=== PATIENT | male | born 1935 | race Caucasian/White ===

== ENCOUNTER 2017-03-18 11:20 | Emergency (ER) | payer OTHER ==
[~2017-03-18] VITALS: Wt 74.0 kg
[2017-03-18] MEDS ORDERED: ACETAMINOPHEN 650 MG SUPP PR STA (11:24)
[2017-03-18] MEDS ORDERED: SODIUM CHLORIDE 0.9% 1L BAG IV* STA ×2 (11:48→12:59)
[2017-03-18 12:15] LABS: ABNORMAL IP MESSAGE 1; BASOPHILS % 0.1 % (0.0-2.0); HEMATOCRIT 46.1 % (42.0-52.0); HEMOGLOBIN 14.8 g/dl (14.0-18.0); LYMPHOCYTES # 0.3 10^3/ul (0.8-2.9); LYMPHOCYTES % 2.8 % (15.0-51.0); MEAN CORPUSCULAR HEMOGLOBIN 29.4 pg (29.0-33.0); MEAN CORPUSCULAR HGB CONC 32.1 g/dl (32.0-37.0); MEAN CORPUSCULAR VOLUME 91.5 fl (82.0-101.0); MEAN PLATELET VOLUME 9.8 fl (7.4-10.4); MONOCYTE # 0.5 10^3/ul (0.3-0.9); MONOCYTES % 4.1 % (0.0-11.0); NEUTROPHIL # 11.2 10^3/ul (1.6-7.5); NEUTROPHILS % 92.5 % (39.0-77.0); PLATELET COUNT 132 10^3/UL (140-415); POSITIVE DIFF @See below; RED BLOOD COUNT 5.04 10^6/ul (4.70-6.10); RED CELL DISTRIBUTION WIDTH 13.9 % (11.5-14.5); WHITE BLOOD COUNT 12.1 10^3/ul (4.8-10.8)
[2017-03-18 12:16] LABS: ADD UMIC YES; UR ASCORBIC ACID NEGATIVE (NEGATIVE); UR BACTERIA MANY /HPF (NONE SEEN); UR BILIRUBIN (Dip) NEGATIVE (NEGATIVE); UR BLOOD (Dip) 3+ mg/dL (NEGATIVE); UR CLARITY CLOUDY (CLEAR); UR COLOR AMBER (YELLOW); UR GLUCOSE (Dip) NEGATIVE (NEGATIVE); UR KETONES (Dip) NEGATIVE (NEGATIVE); UR LEUKOCYTE ESTERASE (Dip) 3+ Leu/ul (NEGATIVE); UR NITRITE (Dip) NEGATIVE (NEGATIVE); UR RBC > 182 /HPF (0-5); UR SPECIFIC GRAVITY (Dip) 1.013 (1.003-1.030); UR TOTAL PROTEIN (Dip) 2+ mg/dl (NEGATIVE); UR UROBILINOGEN (Dip) 2+ mg/dL (NEGATIVE)
[2017-03-18] MEDS ORDERED: CEFTRIAXONE 1 GM/50 ML (PMX) 50 ML IVPB ONE (12:30)
[2017-03-18 12:33] LABS: INR 0.98
[2017-03-18 12:34] LABS: PARTIAL THROMBOPLASTIN TIME 27.6 Sec (25.0-35.0)
[2017-03-18 12:35] LABS: ALBUMIN 3.4 g/dl (3.3-4.9); ALBUMIN/GLOBULIN RATIO 0.94; BILIRUBIN,DIRECT 0.5 mg/dl (0.00-0.20); BILIRUBIN,INDIRECT 1.4 mg/dl (0-1.1); BILIRUBIN,TOTAL 1.9 mg/dl (0.2-1.3); CALCIUM 9.1 mg/dl (8.4-10.2); CREATININE 1.28 mg/dl (0.61-1.24); POTASSIUM 3.9 mmol/L (3.5-5.1)
[2017-03-18 12:45] LABS: TROPONIN-I 0.021 ng/ml (0.00-0.12)
--- NOTE | 2017-03-18 13:07 | RADRPT ---
PROCEDURE: XR Chest. CLINICAL INDICATION: Shortness of breath. TECHNIQUE: Single frontal view. COMPARISON: None. FINDINGS: The lungs are clear. The heart size is normal. There is calcification in the aorta consistent with atherosclerosis. There is no pleural effusion or pneumothorax. There are degenerative changes of both shoulders. IMPRESSION: 1. Degenerative changes of both shoulders. 2. Atherosclerosis. 3. Otherwise normal chest radiograph. RPTAT: QQ .Steven Recinos MD, MD Date Time Electronically viewed and signed by .Steven Recinos MD, on 03/18/2017 13:07 .R/
[2017-03-18] MEDS ORDERED: WARF2.5T PO (13:26)
[2017-03-18] MEDS ORDERED: METO-335 PO (13:26)
[2017-03-18] MEDS ORDERED: ALLO100T PO (13:27)
[2017-03-18] MEDS ORDERED: ISOS30TA5 PO (13:27)
[2017-03-18] MEDS ORDERED: AMLO5TAB4 PO (13:27)
[2017-03-18] MEDS ORDERED: ATOR40TA68 PO (13:28)
[2017-03-18] MEDS ORDERED: NIT4 SL (13:28)
[2017-03-18] MEDS ORDERED: ASPI-664 PO (13:29)
[2017-03-18] MEDS ORDERED: DOCU-159 PO (13:29)
[2017-03-18] MEDS ORDERED: CALC500T91 PO (13:30)
--- NOTE | 2017-03-18 14:15 | ERA ---
ER Documentation Chief Complaint Date/Time DATE: 03/18/17 TIME: 14:10 Chief Complaint VOMITING AND NAUSEA WITH FEVER FOR THE PAST FEW DAYS. NORMAL BASELINE HPI History obtained from EMS this patient is unable to give a detailed history secondary to his cognitive deficit a baseline dementia. This is an 82-year-old male who presents to the emergency room after being brought in by EMS from home for evaluation of a fever, and generalized weakness over the past few days. EMS state that this patient's daughter takes care of him at home and states that he has not had any of his medications in 2 weeks and not he has been more weak than normal. She states that he has been feeling weak for the past 48 hours.She states that he becomes weak when he has an infection. No further history is obtainable ROS All systems reviewed and are negative except as per history of present illness. Medications Home Meds Reported Medications Calcium Carbonate ([id number]) 500 Mg Tablet, 500 MG PO DAILY, TAB 03/18/17 Docusate Sodium* (Docusate Sodium*) 100 Mg Capsule, 100 MG PO DAILY, #30 CAP 03/18/17 Aspirin (Low Dose Aspirin) 81 Mg Tablet.dr, 81 MG PO DAILY, #30 TAB 03/18/17 Nitroglycerin* (Nitrostat*) 0.4 Mg Tab.subl, 0.4 MG SL Q5MIN Y for CHEST PAIN, BOTTLE 03/18/17 Atorvastatin* (Atorvastatin*) 40 Mg Tablet, 40 MG PO QHS, #30 TAB 03/18/17 Allopurinol* (Allopurinol*) 100 Mg Tablet, 100 MG PO DAILY, TAB 03/18/17 Amlodipine Besylate* (Norvasc*) 5 Mg Tablet, 5 MG PO DAILY, TAB 03/18/17 Isosorbide Mononitrate* (Isosorbide Mononitrate*) 30 Mg Tab.er.24h, 30 MG PO DAILY, TAB 03/18/17 Metoprolol Succinate* (Toprol XL*) 25 Mg Tab.sr.24h, 25 MG PO DAILY, #30 TAB 03/18/17 Warfarin Sodium* (Coumadin*) 2.5 Mg Tablet, 2.5 MG PO DAILY, TAB 03/18/17 Allergies Allergies: Coded Allergies: No Known Allergy (Unverified , 03/18/17) NKA PER DR BERGMAN PMhx/Soc History of Surgery: No Anesthesia Reaction: No Hx Neurological Disorder: No Hx Respiratory Disorders: No Hx Cardiac Disorders: Yes (HTN) Hx Psychiatric Problems: No Hx Miscellaneous Medical Probl: Yes (HIGH LIPIDS) Hx Alcohol Use: No Hx Substance Use: No Hx Tobacco Use: No Smoking Status: Never smoker Physical Exam Vitals Vital Signs Date Time Temp Pulse Resp B/P Pulse Ox O2 Delivery O2 Flow Rate FiO2 03/18/17 12:26 Nasal Cannula 4 03/18/17 11:45 100.6 116 26 135/70 98 Physical Exam INITIAL VITAL SIGNS: Reviewed by me GENERAL: The patient is well developed, dry urine on patient HEENT: Dry mucous membranes, pupils equal, round, and reactive to light. EOMI. There is no scleral icterus. NECK: C-spine is soft and supple, there is no meningismus. There is no cervical lymphadenopathy. LUNGS: Clear to auscultation bilaterally. There are no rales, wheezes or rhonchi. HEART: Tachycardic, no murmurs, clicks, rubs or gallops. ABDOMEN: Soft, non-tender, non-distended. There are bowel sounds in all four quadrants. No rebound or guarding. EXTREMITIES: There is no peripheral cyanosis or edema. No focal swelling or erythema. NEUROLOGICAL: The patient moves all four extremities with 5/5 strength. SKIN: There is no apparent rash or petechiae. HEME/LYMPHATIC: There is no evidence of excessive bruising or lymphedema. PSYCHIATRIC: The patient does not appear anxious or depressed. Result Diagram: 03/18/17 1145 03/18/17 1145 Results 24 hrs Laboratory Tests Test 03/18/17 11:45 White Blood Count 12.110^3/ul Red Blood Count 5.0410^6/ul Hemoglobin 14.8g/dl Hematocrit 46.1% Mean Corpuscular Volume 91.5fl Mean Corpuscular Hemoglobin 29.4pg Mean Corpuscular Hemoglobin Concent 32.1g/dl Red Cell Distribution Width 13.9% Platelet Count 47784^3/UL Mean Platelet Volume 9.8fl Neutrophils % 92.5% Lymphocytes % 2.8% Monocytes % 4.1% Eosinophils % 0.0% Basophils % 0.1% Nucleated Red Blood Cells % 0.0/100WBC Neutrophils # 11.210^3/ul Lymphocytes # 0.310^3/ul Monocytes # 0.510^3/ul Eosinophils # 0.010^3/ul Basophils # 0.010^3/ul Nucleated Red Blood Cells # 0.010^3/ul Prothrombin Time 13.0Sec Prothrombin Time Ratio 1.0 INR International Normalized Ratio 0.98 Activated Partial Thromboplast Time 27.6Sec Urine Color JENNIFER Urine Clarity CLOUDY Urine pH 6.0 Urine Specific [place] 1.013 Urine Ketones NEGATIVEmg/dL Urine Nitrite NEGATIVEmg/dL Urine Bilirubin NEGATIVEmg/dL Urine Urobilinogen 2+mg/dL Urine Leukocyte Esterase 3+Taz/ul Urine Microscopic RBC > 182/HPF Urine Microscopic WBC > 182/HPF Urine Bacteria MANY/HPF Urine Hemoglobin 3+mg/dL Urine Glucose NEGATIVEmg/dL Urine Total Protein 2+mg/dl Sodium Level 144mmol/L Potassium Level 3.9mmol/L Chloride Level 106mmol/L Carbon Dioxide Level 32mmol/L Anion Gap 10 Blood Urea Nitrogen 24mg/dl Creatinine 1.28mg/dl Glucose Level 221mg/dl Lactic Acid Level 3.3mmol/L Calcium Level 9.1mg/dl Total Bilirubin 1.9mg/dl Direct Bilirubin 0.50mg/dl Indirect Bilirubin 1.4mg/dl Aspartate Amino Transf (AST/SGOT) 647IU/L Alanine Aminotransferase (ALT/SGPT) 465IU/L Alkaline Phosphatase 290IU/L Creatine Kinase 42IU/L Troponin I 0.021ng/ml Total Protein 7.0g/dl Albumin 3.4g/dl Globulin 3.60g/dl Albumin/Globulin Ratio 0.94 Current Medications Medications (Trade) Dose Ordered Sig/Rosa Isela Route PRN Reason Start Time Stop Time Status Last Admin Dose Admin Acetaminophen (Tylenol Supp) 650 mg ONCE STAT MO 03/18/17 11:24 03/18/17 11:25 DC 03/18/17 12:13 Sodium Chloride 2000 ml 2,000 ml BOLUS OVER 2 HOURS STAT IV* 03/18/17 11:48 03/18/17 11:49 DC 03/18/17 12:12 Ceftriaxone Sodium (Rocephin) 50 ml @ 100 mls/hr ONCE ONCE IVPB 03/18/17 12:30 03/18/17 12:59 DC 03/18/17 12:30 Sodium Chloride (NS) 2,000 ml BOLUS OVER 2 HOURS STAT IV* 03/18/17 12:59 03/18/17 13:00 DC 03/18/17 14:05 Procedures/MDM EKG: Rate/Rhythm: Sinus tachycardia QRS, ST, T-waves: [No changes consistent w/ acute ischemia] Impression: [No evidence of ischemia or arrhythmia] Chest X-ray 1V Interpreted by me: Soft Tissue: No acute abnormalities Bones: No acute abnormalities Mediastinum/Cardiac Silhouette/Lungs: [No acute abnormalitiesThis is an 82- year-old male who presents to the emergency room for evaluation of generalized weakness. When I evaluated this patient as patient was tachycardic and was febrile. This patient underwent a septic workup and the septic workup does demonstrate slight leukocytosis however this patient does have a neutrophilic predominance and has lactic acid of 3.3 with greater than 180 white blood cells in the urine. This patient was given greater than 30 cc/kg of IV normal saline. His mean arterial pressures greater than 65 with no need for vasopressors at this time. The patient was started on Rocephin in the emergency room after blood and urine cultures were obtained. This patient is a [facility] patient and have spoken to Dr. Markham who states that he will accept this patient at this time. The patient first available [facility] facility with an inpatient bed. Case #[id number] Critical Care: Excluding all billable procedures Time: 42 minutes Treatments/Evaluations: Close monitoring and treatment of unstable vital signs, cardiorespiratory, and neurologic status, while maintaining tight balance of fluid, respiratory, and cardiac interventions. Departure Diagnosis: Primary Impression: Sepsis Additional Impressions: Acute cystitis Mild dehydration Renal insufficiency Generalized weakness Condition: Stable MELANIE BERGMAN DO Mar 18, 2017 14:15
[2017-03-18] MEDS ORDERED: PIPER-TAZO 3.375 GM IV (PMX) 100 ML IVPB ONE (14:30)
--- NOTE | 2017-03-18 14:46 | RADRPT ---
PROCEDURE: US Abdomen (right upper quadrant). CLINICAL INDICATION: Abnormal liver function tests. TECHNIQUE: Multiple real-time longitudinal and transverse images of the right upper quadrant of th e abdomen were acquired utilizing a curved array transducer. Images were reviewed on a high-resoluti on PACS workstation. COMPARISON: None FINDINGS: The liver is normal in size and normal in echogenicity. There is no focal hepatic lesion. Color Doppler and pulsed Doppler sonography demonstrate normal a ntegrade flow in the portal vein. The gallbladder is contracted but otherwise normal with no stones or wall thickening. There is no p ericholecystic fluid collection. The bile ducts are normal with the common bile duct measuring 1.4 mm in diameter. The pancreas is not visualized due to overlying bowel gas. No free fluid is present. The right kidney measures 9.8 x 4.8 x 3.7 cm. There is diffuse increased echogenicity of the right kidney. There is a benign cyst in the upper right kidney measuring 1.8 x 1.5 x 1.6 cm. There is no solid right renal mass, hydronephrosis, or calculus. IMPRESSION: 1. Contracted gallbladder. Otherwise normal gallbladder with no evidence of cholecystitis. 2. Pancreas not visualized. 3. Diffusely increased echogenicity of the right kidney which may indicate medical renal disease. 4. Benign cyst in the upper right kidney. 5. Otherwise unremarkable study. RPTAT: QQ .Steven Recinos MD, Date Time Electronically viewed and signed by .Steven Recinos MD, on 03/18/2017 14:46 .R/
[2017-03-18 15:40] VITALS: TEMP 99
[2017-03-18] MEDS ORDERED: CEFTAZIDIME 1GM/50 ML (PMX) 50 ML IVPB ONE (16:30)
[2017-03-18 17:46] VITALS: BP 112/53; PULSE 68; RESP 16
== END 2017-03-18 17:48 | disposition short-term general hospital (02) ==
LOC: E/R 11:20
DX: A41.9 Sepsis, unspecified organism (principal); N30.00 Acute cystitis without hematuria; E86.0 Dehydration; N28.9 Disorder of kidney and ureter, unspecified; R53.1 Weakness; I10 Essential (primary) hypertension; R40.2142 Coma scale, eyes open, spontaneous, at arrival to emergency department; R40.2252 Coma scale, best verbal response, oriented, at arrival to emergency department; R40.2362 Coma scale, best motor response, obeys commands, at arrival to emergency department; Z79.82 Long term (current) use of aspirin; Z79.01 Long term (current) use of anticoagulants
CPT/HCPCS: 36415; 71010; 76705; 80053; 81001; 82550; 83605; 84484; 85025; 85610; 85730; 87040; 87086; 93005; 96374; 96375; 99291; J0696; J0713; J2543; J7030